=== PATIENT | female | born 1960 | race Caucasian/White ===

== ENCOUNTER → 2016-06-05 | Outpatient (CLI) | payer BC ==
--- NOTE | 2016-06-05 09:18 | RAD ---
DATE: 06/05/2016 EXAM: DIGITAL SCREEN BILAT W/CAD HISTORY: Routine screening COMPARISON: 06/05/2015 This study was interpreted with the benefit of Computerized Aided Detection (CAD). FINDINGS: The breast parenchyma demonstrates scattered fibroglandular densities, category B. There are no dominant suspicious masses, suspicious microcalcifications or evidence of architectural distortion. IMPRESSION: Negative mammogram BI-RADS CATEGORY: 1 NEGATIVE RECOMMENDED FOLLOW-UP: 12M 12 MONTH FOLLOW-UP PQRS compliance statement: Patient information was entered into a reminder system with a target due date 06/05/2017 for the next mammogram. Mammography is a sensitive method for finding small breast cancers, but it does not detect them all and is not a substitute for careful clinical examination. A negative mammogram does not negate a clinically suspicious finding and should not result in delay in biopsying a clinically suspicious abnormality. "Our facility is accredited by the [employer] Mammography [employer]."
== END | disposition home or self-care (01) ==
LOC: MAMMO 07:30
PROVIDERS: ATTEND Nurse Practitioner
DX: Z12.31 Encounter for screening mammogram for malignant neoplasm of breast (principal)
CPT/HCPCS: G0202; 77067

== ENCOUNTER → 2017-08-02 | Outpatient (CLI) | payer BC | END | disposition home or self-care (01) | LOC: MAMMO 07:53 | DX: Z12.31 Encounter for screening mammogram for malignant neoplasm of breast (principal) | CPT/HCPCS: 77067 ==

== ENCOUNTER → 2017-08-13 | Outpatient (CLI) | payer BC | END | disposition home or self-care (01) | LOC: MAMMO 09:48 | DX: N63.20 Unspecified lump in the left breast, unspecified quadrant (principal) | CPT/HCPCS: 76641; 77065; G0279 ==

== ENCOUNTER → 2018-02-14 | Outpatient (CLI) | payer BC ==
--- NOTE | 2018-02-14 14:11 | RAD ---
DATE: 02/14/2018 EXAM: MAMMO BEN DIAG LT HISTORY: 6 month follow-up COMPARISON: 08/13/2017, 08/02/2017 This study was interpreted with the benefit of Computerized Aided Detection (CAD). Breast Density: SCATTERED The breast parenchyma shows scattered fibroglandular densities. Breast parenchyma level B. FINDINGS: 2-D and 3-D tomosynthesis imaging was performed in CC and MLO projections. There are persistent small, somewhat streaky parenchymal opacities in the posterolateral aspect of the left breast as best seen on CC ben synthesis images 28 through 36. These appear unchanged since 08/13/2017 exam. No new or enlarging breast densities are seen. Benign calcifications are present. No suspicious microcalcifications have developed. IMPRESSION: Stable left breast asymmetries. Further mammographic surveillance consisting of bilateral 3-D mammography in 6 months is suggested. BI-RADS CATEGORY: 3 PROBABLY BENIGN FINDING(S)-SHORT INTERVAL FOLLOW-UP SUGGESTED RECOMMENDED FOLLOW-UP: 6M 6 MONTH FOLLOW-UP PQRS compliance statement: Patient information was entered into a reminder system with a target due date for the next mammogram. Mammography is a sensitive method for finding small breast cancers, but it does not detect them all and is not a substitute for careful clinical examination. A negative mammogram does not negate a clinically suspicious finding and should not result in delay in biopsying a clinically suspicious abnormality. "Our facility is accredited by the [employer] Mammography [employer]."
== END | disposition home or self-care (01) ==
LOC: MAMMO 13:09
PROVIDERS: ATTEND Nurse Practitioner
DX: R92.8 Other abnormal and inconclusive findings on diagnostic imaging of breast (principal)
CPT/HCPCS: 77065; G0279; 77061

== ENCOUNTER → 2019-02-06 | Outpatient (CLI) | payer BC ==
--- NOTE | 2019-02-06 14:14 | RAD ---
DATE: 02/06/2019. EXAM: MAMMO BEN DIAG LT. HISTORY: Routine mammographic screening. COMPARISON: 08/16/2018. This study was interpreted with the benefit of Computerized Aided Detection (CAD). FINDINGS: Breast Density: SCATTERED The breast parenchyma shows scattered fibroglandular densities. Breast parenchyma level B.. The nodule of original concern laterally on the left is no longer seen. There are no suspicious masses, microcalcifications or architectural distortion. Scattered and coarse calcifications are benign. BI-RADS CATEGORY: 2 BENIGN FINDING(S). RECOMMENDED FOLLOW-UP: 6M 6 MONTH FOLLOW-UP. 1. Resume bilateral screening mammography in 6 months. PQRS compliance statement: Patient information was entered into a reminder system with a target due date 08/07/2019 for the next mammogram. Mammography is a sensitive method for finding small breast cancers, but it does not detect them all and is not a substitute for careful clinical examination. A negative mammogram does not negate a clinically suspicious finding and should not result in delay in biopsying a clinically suspicious abnormality. "Our facility is accredited by the [employer] Mammography [employer]."
== END | disposition home or self-care (01) ==
LOC: MAMMO 15:02
PROVIDERS: ATTEND Family Medicine
DX: R92.1 Mammographic calcification found on diagnostic imaging of breast (principal)
CPT/HCPCS: 77065; G0279; 77061

== ENCOUNTER → 2020-02-08 | Outpatient (CLI) | payer BC ==
--- NOTE | 2020-02-08 10:15 | RAD ---
DATE: 02/08/2020 7:48 AM EXAM: MAMMO BEN SCREENING BILATERAL HISTORY: Screening COMPARISON: 08/16/2018 Bilateral CC and MLO views of the breasts were performed. Bilateral breast tomosynthesis was performed in CC and MLO projections. This study was interpreted with the benefit of Computerized Aided Detection (CAD). FINDINGS: Breast Density: FATTY The Breast Parenchyma is primarily fatty replaced. Breast parenchyma level density A. No suspicious masses, microcalcifications or architectural distortion is present to suggest malignancy in either breast. The visualized axillae are unremarkable. IMPRESSION: No mammographic evidence of malignancy. BI-RADS CATEGORY: 1 NEGATIVE RECOMMENDED FOLLOW-UP: 12M 12 MONTH FOLLOW-UP Annual screening mammography is recommended, unless clinically indicated sooner based on symptoms or change in physical exam. PQRS compliance statement: Patient information was entered into a reminder system with a target due date for the next mammogram. Mammography is a sensitive method for finding small breast cancers, but it does not detect them all and is not a substitute for careful clinical examination. A negative mammogram does not negate a clinically suspicious finding and should not result in delay in biopsying a clinically suspicious abnormality. "Our facility is accredited by the [employer] Mammography [employer]."
== END ==
LOC: MAMMO 07:41
PROVIDERS: ATTEND Family Medicine
DX: Z12.31 Encounter for screening mammogram for malignant neoplasm of breast (principal)
CPT/HCPCS: 77063; 77067

== ENCOUNTER → 2021-02-04 | Outpatient (CLI) | payer BC ==
[2021-02-04 08:06] LABS: BASO % 1 % (0-3); EOS # 0.2 x10^3/uL (0.0-0.7); EOS % 2 % (0-3); HEMATOCRIT 44.1 % (36.0-47.0); HEMOGLOBIN 14.8 g/dL (12.0-15.5); LYMPH # 2.3 x10^3/uL (1.0-4.8); LYMPH % 33 % (24-48); MEAN CORPUSCULAR HEMOGLOBIN 33 pg (25-35); MEAN CORPUSCULAR HGB CONC 34 g/dL (31-37); MEAN CORPUSCULAR VOLUME 98 fL (79-100); MONO # 0.6 x10^3/uL (0.0-1.1); MONO % 8 % (0-9); NEUT # 3.9 x10^3/uL (1.8-7.7); NEUT % 56 % (31-73); PLATELET COUNT 273 x10^3/uL (140-400); RED CELL DISTRIBUTION WIDTH 13.1 % (11.5-14.5)
[2021-02-04 08:25] LABS: ALBUMIN 3.5 g/dL (3.4-5.0); CALCIUM 8.8 mg/dL (8.5-10.1); CREATININE 0.9 mg/dL (0.6-1.0); GFR 63.4; POTASSIUM 4.4 mmol/L (3.5-5.1); TOTAL BILIRUBIN 0.5 mg/dL (0.2-1.0); TOTAL PROTEIN 6.9 g/dL (6.4-8.2)
[2021-02-05 01:16] LABS: HEMOGLOBIN A1C 5.8 % (4.8-5.6)
== END ==
LOC: LAB 07:39
PROVIDERS: ATTEND Family Medicine
DX: Z00.00 Encounter for general adult medical examination without abnormal findings (principal)
CPT/HCPCS: 36415; 80053; 80061; 83036; 84443; 85025

== ENCOUNTER → 2021-02-11 | Outpatient (CLI) | payer BC ==
--- NOTE | 2021-02-11 12:24 | RAD ---
Bilateral digital screening mammogram to include digital breast tomosynthesis (3-D mammography) 02/11 CLINICAL HISTORY: Screening study. Digital MLO and CC mammograms of both breasts were obtained. Additionally digital breast tomosynthesi s images (3-D mammography) of both breasts in the CC and MLO projections were obtained. Comparison studies are dated 02/08/2020 and 08/02/2017. The breast parenchyma is composed of scattered fibroglandular densities which can obscure a lesion on mammography (breast density B). Benign-appearing calcifications are seen within both breasts. No spi culated mass is seen. No malignant appearing calcification or area of architectural distortion is not ed. Digital breast tomosynthesis images demonstrate no spiculated mass. No malignant appearing calcificat ion is seen. Impression: BI-RADS Category 1: Negative. There is no mammographic evidence of malignancy. Routine y early screening mammography is recommended for follow-up. This examination was reviewed with the aid of computer-aided detection. A mammogram does not have 100% sensitivity and therefore a negative imaging study should not delay fu rther work up of a suspicious abnormality. Patient information is entered into the reminder system with a target due date for the next screening mammogram of 02/11/2022. "Our facility is accredited by the [employer] Mammography [employer]." Electronically signed by: Sky Qureshi MD (02/11/2021 12:21 PM) [id number]
== END ==
LOC: MAMMO 08:10
PROVIDERS: ATTEND Family Medicine
DX: Z12.31 Encounter for screening mammogram for malignant neoplasm of breast (principal)
CPT/HCPCS: 77063; 77067